=== PATIENT | female | born 1975 | race Caucasian/White ===

== ENCOUNTER 2018-12-28 06:04 | Inpatient (IN) ==
[2018-12-28] MEDS ORDERED: CeFAZolin Syr 3,000MG/30 ML 3,000 MG/30 ML SYRINGE IVPB ONE (06:20)
[2018-12-28] MEDS ORDERED: Ringers Solution, Lactated 1,000 ML IVC SCH (06:30)
[2018-12-28] MEDS ORDERED: Bupivacaine-MPF 0.25% 10 ML VIAL ONE (07:09)
[2018-12-28] MEDS ORDERED: *HR* Rocuronium Bromide 50 MG/5 ML VIAL ONE ×2 (07:11→08:12)
[2018-12-28] MEDS ORDERED: Lidocaine -MPF 2% 2 ML VIAL ONE (07:11)
[2018-12-28] MEDS ORDERED: *HR* Succinylcholine 200 MG/10 ML VIAL IVP ONE (07:11)
[2018-12-28] MEDS ORDERED: *HR* FentaNYL (PF) 100 MCG/2 ML VIAL ONE (07:12)
[2018-12-28] MEDS ORDERED: *HR* Midazolam HCl 2 MG/2 ML VIAL ONE (07:12)
[2018-12-28] MEDS ORDERED: *HR* Propofol 200 MG/20 ML VIAL IVP ONE (07:13)
--- NOTE | 2018-12-28 07:17 | Anesthesia Evaluation PreOp ---
Date of Encounter: 12/28/18 Time of Encounter: 07:13 - Past History Planned Operation: Left Robotic Partial Nephrectomy Cardiac History: HTN Pulmonary History: Former smoker (quit 10 years ago) RIPSAW GRADER History: Denies Any Significant HX Other Medical History: Diabetes Type II (pre diabetic), Other (Lamin BMI-44.1) Anesthesia History: Past Anesthesia (hysteroscopy, D&C, polypectomy), Problems (PONV) : No (DAMION) Alcohol Use: none Drug use: none Medications and Allergies Biotin 5,000 mcg PO DAILY 07/10/17 [History] Glucosamine HCl/Chondr Vaughan A Na [[facility] Glucosamine-Chondr Tablet] 1 tab PO BID 07/10/17 [History] Losartan/Hydrochlorothiazide [Hyzaar 100-12.5 Tablet] 1 tab PO DAILY 07/10/17 [History] Magnesium Oxide [Magnesium] 500 mg PO DAILY 07/10/17 [History] Naproxen [Naprosyn] 500 mg PO Q12H PRN 07/10/17 [History] Lactobacillus Combination No.8 [Adult Probiotic] 2 cap PO BID 12/28/18 [History] Medroxyprogesterone Acetate [Provera] 10 mg PO DAILY 12/28/18 [History] Allergy/AdvReac Type Severity Reaction Status Date / Time Sulfa (Sulfonamide Allergy See Verified 12/28/18 06:25 Antibiotics) Comments bandages fabric strips Allergy Rash Uncoded 09/03/18 12:40 - Meds/Allergy Pre-op Review Medications Reviewed: Yes Allergies Reviewed: Yes Beta Blockers on Current Med List: No Anesthesia Results - Labs Laboratory Tests 08/17/18 12/21/18 12/21/18 10: 11:03 11:03 WBC 9.6 Hgb 13.1 Hct 41.6 Plt Count 464 H Sodium 138 Potassium 4.1 Chloride 105 Carbon Dioxide 26 BUN 12 - Imaging EKG: report reviewed (NSR) Anesthesia Exam O2 Sat Height 1.73 m Weight 131.542 kg O2 Sat by Pulse Oximetry 96 Vital Signs Temp Pulse Resp BP Pulse Ox 98.7 F 95 18 113/68 96 12/28/18 06:20 12/28/18 06:20 12/28/18 06:20 12/28/18 06:20 12/28/18 06:20 - HEENT Pupil (Motor): Pupils equal, EOMI Mallampati: II Teeth: Missing Denture Type: Upper: Complete, Lower: Partial - RIPSAW GRADER LOC: Oriented RIPSAW GRADER Motor: Normal RUE, Normal LUE, Normal RLE, Normal LLE, Normal Face RIPSAW GRADER Sensory: Normal: RUE, LUE, RLE, LLE, Face - Cardiac Rhythm: Regular Murmur: None JVD: No Carotid Bruit: No - Pulmonary Breath Sounds: bilateral Clear Respiratory Effort: Symmetrical Anesthesia Assess/Plan ASA Score: 2 Level of consciousness: Cooperative Anesthetic Plan: General Autologous Blood: Yes Monitoring Plan: Standard Monitors, A-Line Recovery Plan: PACU
--- NOTE | 2018-12-28 07:19 | History & Physical Report ---
Date of Encounter: 12/28/18 Time of Encounter: 07:19 24 Hour HP Update - Instructions Instructions: If the History and Physical is less than 30 days old and was completed prior to A.M. admission and or procedure and has NOT been updated on calendar day of procedure please complete this update prior to performing procedure. - Update Patient reports changes in Medical Condition: No Changes in examination, assessment, or condition: No Changes in Medication: No Preop tests/diagnostics Reviewed: Yes Surgery Remains Indicated: Yes Consent for Planned Operative Procedure(s) Verified: Yes - Pre-Operative Checklist Preoperative Checklist Indicated: Yes Prophylactic Antibiotic Ordered: Yes Home Medications Include Beta Rhiannon: No Is VTE Prophylaxis Indicated?: Yes
[2018-12-28] MEDS ORDERED: Scopolamine Patch 1.5 MG PATCH.TD72 TD ONE (07:26)
[2018-12-28] MEDS ORDERED: Mannitol 25% vial 12.5 GM/50 ML VIAL IVP ONE (07:29)
[2018-12-28] MEDS ORDERED: Ondansetron 4 MG/2 ML VIAL ONE (08:10)
[2018-12-28] MEDS ORDERED: Dexamethasone 4 MG/ML VIAL ONE (08:10)
[2018-12-28] MEDS ORDERED: Neostigmine Methylsulfate 3 MG/3 ML SYRINGE ONE (11:04)
[2018-12-28] MEDS ORDERED: Acetaminophen IV 1,000 MG/100 ML INFUS..BTL ONE (11:06)
[2018-12-28] MEDS ORDERED: *HR* HYDROMORPHONE 2 MG/ML VIAL ONE (11:11)
--- NOTE | 2018-12-28 12:05 | Operative Note ---
Date of procedure: 12/28/18 Pre-op diagnosis: Left renal mass Post-op diagnosis: same Procedure: Left robotic partial nephrectomy Implants: 19-Egyptian Josh drain Hannah catheter Complications: None Anesthesia: GETA Surgeon: Kanu Larson Was there an sales assistant entertainment and media present: No Hadoop Analyst: Jah Wesley Hadoop Analyst Other: Amairani Sy Estimated blood loss (cc): 500 Specimen: left renal mass Condition: stable Disposition: PACU Procedure in Detail: Indications: Nancy is a 43-year-old woman who presents with a left renal mass. After discussion of her options she elected to undergo a left robotic partial nephrectomy. She was informed of the risks of the procedure which include but are not limited to bleeding, infection, injury to other structures, need for further procedures, urine leak, bowel injury, need for complete nephrectomy, need for open conversion, and the risk of anesthesia. She is willing to proceed. Procedure After informed consent was obtained the patient was brought back to the operating room and placed in the supine position. A timeout was performed. Gen. anesthesia was then administered and an endotracheal tube was placed. Appropriate IV access was obtained. A Hannah catheter was placed. She was then placed in the flank position. Her left side was up. All pressure points were padded. She was well secured to the table. She was then prepped and draped in the usual sterile fashion. We then marked out our incision 2 fingerbreadths superior to the umbilicus and 2 fingerbreadths lateral to that. An 8 mm incision was then made. The Veress needle was introduced. 2 clicks were heard. It past the water drop test. Insufflation was then initiated. Pressures were low consecutively. The abdomen was insufflated. Once the pressure was up to 15, we inserted the 8 mm robotic port. Entry was obtained into the abdomen. The bowel was surveyed below and there is no evidence of bowel injury. Robotic ports were then inserted superior and two inferior to the camera port. A 12 mm port was placed for the sales assistant entertainment and media within the umbilicus. The robot was docked. The bowel was reflected off the kidney along the white line of Toldt. The gonadal vein was identified and tracked superiorly to the hilum. The renal vein was identified. The artery was seen pulsating superior to the vein. The artery was dissected out. Once the hilum was well exposed we proceeded with mobilization of the kidney. Lateral to Gerota's fascia I dissected the kidney off the pelvic and abdominal sidewall. Attachments from the spleen were freed up as well. The ultrasound probe was introduced. The tumor was identified posterior in the kidney. I then turned my attention to the fat overlying the kidney. This was dissected off the kidney. The tumor was identified post eriorly. A significant amount of mobility had to be achieved to get access to the tumor. Once the tumor was well exposed the ultrasound probe was introduced and I scored out the areas of excision using cautery. Mannitol was then given. 0.5 mL of ICG was administered. Once it was identified into the renal artery the artery was clamped using the bulldog. The tumor was excised sharply using cold scissors. There was still some bleeding noted. There may have been a posterior branch which was not identified from the artery. I was able to excise the tumor intact. Once the tumor was removed I utilized a 3-O V-LOC suture to close the deeper vessels in a running fashion. Hemostasis was then achieved along these vessels. I then closed the capsule to itself using 0 V-LOCl suture in an interrupted fashion with the sliding clip renorrhaphy technique. Hemostasis was good. The bulldog clamp was removed. 27 minutes of warm ischemia time was noted. Once the bulldog clamp was removed and FloSeal was applied to the resection area. Hemostasis seemed adequate. The specimen was placed in a entrapment bag. The kidney was pexied back to the abdominal sidewall closing Gerota's fascia back to itself in a running fashion using an 0 Vicryl suture. A 19 Egyptian Josh drain was then placed. The drain was placed posterior to the kidney where the area of excision was located. The sales assistant entertainment and media port was closed with the assistance of an Endo Close. Over the suture was used to close that 12 mm port. All the ports were then removed. The wounds were closed using 4-0 Monocryl suture. The drain was secured to the skin using a nylon suture. The abdomen was then washed and dried and Dermabond was applied to the wounds. The patient was then awakened from general anesthesia and brought to recovery room in good condition. All sponge, needle, and instrument counts were correct.
--- NOTE | 2018-12-28 12:30 | Anesthesia Evaluation Post Op ---
Date of Encounter: 12/28/18 Time of Encounter: 12:30 - Vital Signs Vital Signs: Vital Signs/O2 Sat/Glucose, Most Current Temp Pulse Resp BP Pulse Ox 12/28/18 12:20 96 16 122/61 94 12/28/18 12:10 93 16 120/60 93 12/28/18 12:00 99.0 F 99 16 118/68 99 - Lungs Lungs: Clear Ascult./Percussion - Airway Airway: Non-obstructed - Cardiovascular Regular Rate - Mental Status Mental Status: Alert & Oriented, Answers Appropriately - Pain Pain Scale: 1 - Nausea Vomiting Nausea Vomiting: Not Present - Hydration Hydration: NPO, Hannah catheter - Discharge PostOp Status: Transfer Patient to floor
[2018-12-28] MEDS ORDERED: OXYCODONE Oral CONC 10 MG/0.5 ML ORAL.SYG SL PRN (13:01)
[2018-12-28] MEDS ORDERED: Naloxone 0.4 MG/ML INJ IVP PRN (13:01)
[2018-12-28] MEDS ORDERED: Ondansetron 4 MG/2 ML VIAL IVP PRN (13:01)
[2018-12-28] MEDS ORDERED: Acetaminophen 325 MG TABLET PO PRN (13:01)
[2018-12-28] MEDS: *HR* HYDROcodone/Acet 5/325 mg TABLET PO PRN ×2 (15:33→20:00)
[2018-12-28] MEDS: 0.9 % Sodium Chloride 1,000 ML IVC SCH (15:35)
[2018-12-28] MEDS ORDERED: CeFAZolin Syr 3,000MG/30 ML 3,000 MG/30 ML SYRINGE IVPB SCH (16:00)
[2018-12-28] MEDS: ceFAZolin 3,000 MG in 0.9 % Sodium Chloride 100 ML IVPB SCH (17:35)
[2018-12-28] MEDS: Simethicone 80 MG TAB.CHEW PO PRN (19:18)
[2018-12-29] MEDS: ceFAZolin 3,000 MG in 0.9 % Sodium Chloride 100 ML IVPB SCH (00:25)
[2018-12-29] MEDS: 0.9 % Sodium Chloride 1,000 ML IVC SCH ×3 (00:25→16:13)
[2018-12-29] MEDS: *HR* HYDROcodone/Acet 5/325 mg TABLET PO PRN ×6 (00:32→21:54)
[2018-12-29 01:59] LABS: Basophils % 0.1 %; Eosinophils % 0.1 %; Hematocrit 33.1 % (35.3-44.9); Hemoglobin 10.6 g/dL (11.5-15.4); Immature Granulocytes % 0.3 % (0-4); Lymphocytes # 1.9 K/mcL (0.6-4.6); Lymphocytes % 11.8 %; Mean Corpuscular Hemoglobin 26.6 pg (28.0-33.3); Mean Corpuscular Volume 83.2 fL (83.0-100.0); Mean Platelet Volume 9.5 fL (9.4-12.4); Monocytes # 1.3 K/mcL (0.0-1.3); Monocytes % 8.1 %; Neutrophils # 12.7 K/mcL (1.6-8.9); Platelet Count 352 K/mcL (140-400); Red Blood Count 3.98 M/mcL (3.82-4.97); Red Cell Distribution Width 14.4 % (11.5-14.5); Segmented Neutrophils % 79.6 %
[2018-12-29 02:14] LABS: INR 1.2; Prothrombin Time 13.1 Seconds (9.4-12.1)
[2018-12-29] MEDS: Simethicone 80 MG TAB.CHEW PO PRN ×3 (04:39→16:14)
[2018-12-29] MEDS ORDERED: Bisacodyl 10 MG RECTAL SUPPOSITORY RC PRN (07:59)
[2018-12-29] MEDS: hydroCHLOROthiazide 25 MG TABLET PO SCH (09:00)
--- NOTE | 2018-12-29 09:03 | Urology Progress Note ---
<Amairani Sy N - Last Filed: 12/29/18 09:00> Date of Encounter: 12/29/18 Time of Encounter: 08:05 - Assessment and Plan (1) Left renal mass Current Visit: Yes Status: Acute Assessment and plan: Patient is a 43-year-old female who presents one day status post left robotic partial nephrectomy. Patient is recovering well with no new concerns. Vital signs are stable and afebrile. Hemoglobin and renal function are reassuring. I encouraged ambulation, and patient is very motivated. We will initiate stool softeners twice daily, advance diet as tolerated, and discontinue IV. Anticipate discharge tomorrow. Progress Note Subjective: no new complaints Narrative: POD #1. Patient seen and examined sitting upright in bed in no apparent distr ess. Patient is tolerating normal diet without nausea or vomiting. Smith catheter has been removed. Patient states pain is well-controlled, and she denies any chest pain, dyspnea, fever or chills. Objective Initial Vital Signs Temp Pulse Resp BP Pulse Ox 98.7 F 95 18 113/68 96 12/28/18 06:20 12/28/18 06:20 12/28/18 06:20 12/28/18 06:20 12/28/18 06:20 - General physical appearance Present: well developed, no distress, no pain - Respiratory Present: normal expansion, normal respiratory effort - Abdomen Present: soft, non tender, wound (Primary incisions are clean, dry, intact.) - Integumentary Present: no rash, no abnormal pigmentation - Musculoskeletal Present: normal posture - Psychiatric Present: oriented to time, oriented to person, oriented to place, speech is normal, memory intact - Labs 12/29/18 01:21 Consult Discharge Plan - Plan Referrals: Andrew Mitchell MD [Primary Care Provider] - <Kanu Larson W - Last Filed: 12/29/18 12:01> Date of Encounter: 12/29/18 - Assessment and Plan (1) Left renal mass Current Visit: Yes Status: Acute Assessment and plan: Patient seen and examined with the PA. Agree with assessment and plan. She is doing well today. AMRIT with minimal output. UOP is good. Will d/c smith and ADAT. Continue AMRIT until discharge. Anticipate d/c home today or tomorrow. Objective Initial Vital Signs Temp Pulse Resp BP Pulse Ox 98.7 F 95 18 113/68 96 12/28/18 06:20 12/28/18 06:20 12/28/18 06:20 12/28/18 06:20 12/28/18 06:20 - Labs 12/29/18 01:21
[2018-12-30] MEDS: 0.9 % Sodium Chloride 1,000 ML IVC SCH (01:02)
[2018-12-30] MEDS: *HR* HYDROcodone/Acet 5/325 mg TABLET PO PRN ×4 (01:41→14:36)
[2018-12-30] MEDS: Simethicone 80 MG TAB.CHEW PO PRN ×2 (06:24→14:37)
--- NOTE | 2018-12-30 08:21 | Urology Progress Note ---
Date of Encounter: 12/30/18 Time of Encounter: 07:50 - Assessment and Plan (1) Left renal mass Current Visit: Yes Status: Acute Assessment and plan: Patient is a 43-year old female who presents 2 days status post left robotic par tial nephrectomy. Vital signs are currently stable and afebrile. AMRIT output increased overnight, although patient has also increased ambulation. Patient is anticipating discharge, but discharge will depend on lab results. CBC, BMP and AMRIT creatinine are pending. Will monitor AMRIT output and reevaluate patient later today once labs are resulted. Progress Note Subjective: feels better Narrative: POD #2. Patient seen and examined sitting upright in bed in no apparent distress. Tolerating normal diet without nausea or vomiting. Pain is well- controlled with oral pain medication. Patient is ambulating with minimal assistance. Patient experienced BM x 1 last night. Patient denies fever, chills, chest pain or dyspnea. AMRIT output increased. Labs pending. Objective Initial Vital Signs Temp Pulse Resp BP Pulse Ox 98.7 F 95 18 113/68 96 12/28/18 06:20 12/28/18 06:20 12/28/18 06:20 12/28/18 06:20 12/28/18 06:20 - General physical appearance Present: well developed, no distress, no pain - Respiratory Present: normal expansion, normal respiratory effort - Abdomen Present: soft, non tender, wound (primary incisions clean, dry, intact; AMRIT with approx 100cc bloody fluid ) - Integumentary Present: no rash, no abnormal pigmentation - Musculoskeletal Present: normal posture - Psychiatric Present: oriented to time, oriented to person, oriented to place, speech is normal, memory intact - Labs 12/29/18 01:21 Consult Discharge Plan - Plan Referrals: Andrew Mitchell MD [Primary Care Provider] -
[2018-12-30] MEDS: hydroCHLOROthiazide 25 MG TABLET PO SCH (08:37)
[2018-12-30 09:09] LABS: Hematocrit 31.5 % (35.3-44.9); Hemoglobin 10.2 g/dL (11.5-15.4); Mean Corpuscular HGB Conc 32.4 g/dL (31.6-35.5); Mean Corpuscular Hemoglobin 27.1 pg (28.0-33.3); Mean Corpuscular Volume 83.6 fL (83.0-100.0); Mean Platelet Volume 9.5 fL (9.4-12.4); Platelet Count 311 K/mcL (140-400); Red Blood Count 3.77 M/mcL (3.82-4.97); Red Cell Distribution Width 14.6 % (11.5-14.5)
[2018-12-30 09:28] LABS: BUN/Creatinine Ratio 11 (6-26); Blood Urea Nitrogen 7 mg/dL (6-20); Calcium 8.1 mg/dL (8.6-10.3); Carbon Dioxide 26 mEq/L (23-29); Chloride 104 mEq/L (98-107); Glucose 166 mg/dL (70-105); Osmolality,Calculated 284 (280-300); Potassium 3.2 mEq/L (3.5-5.1); Sodium 136 mEq/L (136-145); eGFR For Non-African Americans > 60 (> 60)
[2018-12-30 12:48] LABS: Fluid Source for Creatinine PERITONEAL
[2018-12-30 14:30] VITALS: BP 120/77
--- NOTE | 2018-12-30 17:25 | Discharge Summary ---
Date of Encounter: 12/30/18 Time of Encounter: 17:23 - Discharge Diagnosis (1) Left renal mass Priority: Primary Status: Acute - Hospital Course Hospital course: Ms. Johnson is a 43 year old female who presented with a left renal mass. On 12/28/2018 she underwent a left robotic partial nephrectomy. She did well after surgery. Her diet was slowly advanced. Her drain output did increase on postoperative day #2. A AMRIT creatinine was consistent with serum. She began to pass gas and have a bowel movement. She was discharged home on postoperative day #2 in good pain control. Her drain was removed that day. - Time Spent with Patient Total time spent providing and/or coordinating discharge services: Less than 30 minutes Labs on day of discharge: Labs from last 24 hours 12/30/18 12/30/18 12/30/18 08:37 08:37 07:55 WBC 13.1 H RBC 3.77 L Hgb 10.2 L Hct 31.5 L MCV 83.6 MCH 27.1 L MCHC 32.4 RDW 14.6 H Plt Count 311 MPV 9.5 Sodium 136 Potassium 3.2 L Chloride 104 Carbon Dioxide 26 BUN 7 Creatinine 0.62 Est GFR ( Amer) > 60 Est GFR (Non-Af Amer) > 60 BUN/Creatinine Ratio 11 Glucose 166 H Calculated Osmolality 284 Calcium 8.1 L Fluid Creatinine Source PERITONEAL Fluid Creatinine 0.51 - Discharge Medications Prescriptions: New HYDROcodone/Acet 5/325 mg [[place] 5-325 mg] 1 tab PO Q6HR PRN 7 Days #25 tablet PRN Reason: Moderate Pain Docusate [Colace] 100 mg PO BID PRN #60 capsule PRN Reason: Constipation Continue Naproxen [Naprosyn] 500 mg PO Q12H PRN PRN Reason: Pain Losartan/Hydrochlorothiazide [Hyzaar 100-12.5 Tablet] 1 tab PO DAILY Magnesium Oxide [Magnesium] 500 mg PO DAILY Glucosamine HCl/Chondr Vaughan A Na [[facility] Glucosamine-Chondr Tablet] 1 tab PO BID Biotin 5,000 mcg PO DAILY Lactobacillus Combination No.8 [Adult Probiotic] 2 cap PO BID Medroxyprogesterone Acetate [Provera] 10 mg PO DAILY Home Medications: Biotin 5,000 mcg PO DAILY 07/10/17 [History] Glucosamine HCl/Chondr Vaughan A Na [[facility]vs Glucosamine-Chondr Tablet] 1 tab PO BID 07/10/17 [History] Losartan/Hydrochlorothiazide [Hyzaar 100-12.5 Tablet] 1 tab PO DAILY 07/10/17 [History] Magnesium Oxide [Magnesium] 500 mg PO DAILY 07/10/17 [History] Naproxen [Naprosyn] 500 mg PO Q12H PRN 07/10/17 [History] Lactobacillus Combination No.8 [Adult Probiotic] 2 cap PO BID 12/28/18 [History] Medroxyprogesterone Acetate [Provera] 10 mg PO DAILY 12/28/18 [History] Docusate [Colace] 100 mg PO BID PRN #60 capsule 12/30/18 [Rx] HYDROcodone/Acet 5/325 mg [[place]field 5-325 mg] 1 tab PO Q6HR PRN 7 Days #25 tablet 12/30/18 [Rx] Allergies/Adverse Reactions: Allergy/AdvReac Type Severity Reaction Status Date / Time Sulfa (Sulfonamide Allergy See Verified 12/28/18 06:25 Antibiotics) Comments bandages fabric strips Allergy Rash Uncoded 09/03/18 12:40 Date of admission: 12/28/18 12:59 Primary care physician: Andrew Mitchell MD Discharging clinician: Kanu Larson Anticipated date of discharge: 12/30/18 Exam Initial Vital Signs Temp Pulse Resp BP Pulse Ox 98.7 F 95 18 113/68 96 12/28/18 06:20 12/28/18 06:20 12/28/18 06:20 12/28/18 06:20 12/28/18 06:20 - General physical appearance Present: well developed, well nourished, no distress - Eyes Absent: icteric - ENT Present: normal nares - Neck Present: trachea midline - Respiratory Present: normal respiratory effort - Cardiovascular Cardiovascular exam IM: RRR - Abdomen Abdomen: Present: soft (Appropriately tender. Incisions are clean, dry, and intact) - Integumentary Present: no rash - Neurologic Present: normal coordination - Musculoskeletal Present: normal gait - Patient Status Disposition: Home, Self-Care Condition: Good Functional capacity at discharge: independent ambulation Overall status at discharge: patient is progressing back to baseline - Discharge Instructions Follow Up With: Andrew Mitchell MD [Primary Care Provider] - Kanu Larson MD [Partnered Physician] - (2 weeks) Additional Instructions: 1. No heavy lifting greater than 20 pounds x2 weeks. 2. No tub baths x2 weeks. 3. May shower tomorrow. 4. She should follow up in 2 weeks for postoperative check. 5. She should return for any fevers, chills, nausea, vomiting, or significant swelling/ecchymosis. - Diet and Activity Activity: increase activity as tolerated Diet: advance to your usual diet
== END 2018-12-30 19:09 | disposition home or self-care (01) | DRG 657 ==
LOC: SAMDAY 06:04 → 3ANU 12:59
PROVIDERS: ADMIT Urology; ATTEND Urology

== ENCOUNTER 2019-11-06 19:27 | Observation (INO) ==
[2019-11-06 20:10] LABS: Basophils # 0.1 K/mcL (0.0-0.2); Basophils % 0.6 %; Eosinophils # 0.3 K/mcL (0.0-0.6); Eosinophils % 2.3 %; Hematocrit 28.4 % (35.3-44.9); Hemoglobin 8.6 g/dL (11.5-15.4); Immature Granulocytes % 0.5 % (0-4); Lymphocytes % 21.9 %; Mean Corpuscular HGB Conc 30.3 g/dL (31.6-35.5); Mean Corpuscular Hemoglobin 23.2 pg (28.0-33.3); Mean Corpuscular Volume 76.8 fL (83.0-100.0); Mean Platelet Volume 9.1 fL (9.4-12.4); Monocytes % 7.2 %; Neutrophils # 9.3 K/mcL (1.6-8.9); Platelet Count 521 K/mcL (140-400); Red Cell Distribution Width 15.4 % (11.5-14.5); Segmented Neutrophils % 67.5 %; White Blood Count 13.7 K/mcL (4.3-11.1)
[2019-11-06 20:17] LABS: INR 1.2; Prothrombin Time 13.3 Seconds (9.4-12.1)
[2019-11-06 20:20] LABS: Activated Partial Thrombo Time 30.4 Seconds (26.0-36.0)
[2019-11-06] MEDS ORDERED: 0.9 % Sodium Chloride 1,000 ML ONE (20:21)
[2019-11-06 20:34] LABS: BUN/Creatinine Ratio 17 (6-26); Blood Urea Nitrogen 13 mg/dL (6-20); Carbon Dioxide 24 mEq/L (23-29); Chloride 104 mEq/L (98-107); Glucose 131 mg/dL (70-105); Osmolality,Calculated 288 (280-300); Potassium 3.4 mEq/L (3.5-5.1); Sodium 138 mEq/L (136-145); eGFR For African Americans > 60 (> 60); eGFR For Non-African Americans > 60 (> 60)
[2019-11-06] MEDS ORDERED: 0.9 % Sodium Chloride 1,000 ML IV ONE (20:43)
[2019-11-06] MEDS ORDERED: Ondansetron 4 MG/2 ML VIAL IVP PRN (22:11)
[2019-11-06] MEDS ORDERED: Sennosides 8.6 MG TABLET PO PRN (22:11)
[2019-11-06] MEDS ORDERED: Ibuprofen 600 MG TABLET PO PRN (22:30)
[2019-11-06] MEDS ORDERED: *HR* HYDROcodone/Acet 5/325 mg TABLET PO PRN (22:31)
[2019-11-06] MEDS: Ringers Solution, Lactated 1,000 ML IVC SCH (22:44)
[2019-11-07 03:32] LABS: Basophils # 0.1 K/mcL (0.0-0.2); Basophils % 0.4 %; Eosinophils # 0.1 K/mcL (0.0-0.6); Eosinophils % 0.8 %; Hematocrit 24.5 % (35.3-44.9); Hemoglobin 7.5 g/dL (11.5-15.4); Immature Granulocytes % 0.4 % (0-4); Lymphocytes # 3.2 K/mcL (0.6-4.6); Lymphocytes % 22.3 %; Mean Corpuscular HGB Conc 30.6 g/dL (31.6-35.5); Mean Corpuscular Hemoglobin 23.1 pg (28.0-33.3); Mean Corpuscular Volume 75.6 fL (83.0-100.0); Mean Platelet Volume 9.1 fL (9.4-12.4); Monocytes # 1.1 K/mcL (0.0-1.3); Neutrophils # 9.7 K/mcL (1.6-8.9); Platelet Count 478 K/mcL (140-400); Red Blood Count 3.24 M/mcL (3.82-4.97); Red Cell Distribution Width 15.5 % (11.5-14.5); Segmented Neutrophils % 68.1 %; White Blood Count 14.2 K/mcL (4.3-11.1)
[2019-11-07] MEDS: Ringers Solution, Lactated 1,000 ML IVC SCH (06:41)
[2019-11-07] MEDS ORDERED: FLU Vac QV 19-20 (6Month+)/PF 0.5 ML SYRINGE IM ONE (06:51)
[2019-11-07 07:45] VITALS: BP 106/60
[2019-11-07] MEDS ORDERED: hydroCHLOROthiazide 25 MG TABLET PO SCH (09:00)
== END 2019-11-07 09:48 | disposition home or self-care (01) ==
LOC: EMEROOARM 19:27 → 1NENUOBS 19:27
PROVIDERS: ADMIT Obstetrics & Gynecology; ATTEND Obstetrics & Gynecology